=== PATIENT | female | born 1930 | race Caucasian/White ===

== ENCOUNTER 2017-09-11 20:51 | Emergency (ER) | payer OTHER ==
[~2017-09-11] VITALS: Ht 167.6 cm; Wt 55.8 kg
[~2017-09-11 20:51] MED LIST: ACETAMINOPHEN-1 EAC1 PO; ASPIR 8181 MG PO; ASPIRIN325 PO; CARBIDOPA-LEVO1 EAC9 PO; CARBIDOPA/LEVO1 TA1 PO; CARBIDOPA/LEVO1 TAB PO; CEFUROXIME500 MG PO; CIPRO500 MG PO; COLACE100 MG PO; DIFLUCAN150 MG PO; DIFLUCAN200 MG PO; HYDROCODONE-AP1 EAC6 PO; KLOR-CON 1010 MEQ PO; LISINOPRIL10 MG PO; LISINOPRIL5 MG PO; OXYBUTYNIN 5 MG5 M2; REFRESH TEARS15 ML OPHTHALMIC; SYSTANE 0.3-0.415 ML OPHTHALMIC; TOPROL XL25 MG PO; TOPROL XL50 MG PO; XARELTO10 MG PO
[2017-09-11] MEDS ORDERED: ARICEPT 5 MG TAB5 MG PO (20:57)
[2017-09-11] MEDS ORDERED: TOLTERODINE TART4 MG PO (20:58)
[2017-09-11 21:25] LABS: ABSOLUTE BASOPHILS 0.1 thou/uL (0.0-0.2); ABSOLUTE EOSINOPHILS 0.1 thou/uL (0.0-0.7); ABSOLUTE LYMPHOCYTES 1.7 thou/uL (0.8-5.3); ABSOLUTE MONOCYTES 0.7 thou/uL (0.0-1.2); ABSOLUTE NEUTROPHILS 4.7 thou/uL (1.6-8.1); BASOPHILS 1.6 %; HEMOGLOBIN 12.2 gm/dL (12.0-15.0); LYMPHOCYTES 23.4 %; MCH 28.9 pg (26.0-34.0); MCV 87.6 fL (80.0-100.0); MONOCYTES 9.4 %; MPV 8.2 fl. (7.2-11.1); NUCLEATED RBCS 0 /100WBC; PLATELET COUNT* 217 thou/uL (150-400); POLYS 63.6 %; RBC 4.22 mil/uL (4.20-5.00); RDW-CV 14.5 % (10.5-14.5); WBC 7.4 thou/uL (4.0-11.0)
[2017-09-11 21:30] LABS: APTT 21.6 Seconds (25.0-31.3); INR 1.1; PROTIME 10.3 Seconds (9.20-11.50)
[2017-09-11 21:45] LABS: URINE BILIRUBIN NEGATIVE (Negative); URINE BLOOD NEGATIVE (Negative); URINE CLARITY CLEAR; URINE COLOR YELLOW; URINE GLUCOSE-RANDOM NEGATIVE (Negative); URINE KETONES 1+ (Negative); URINE LEUKOCYTES-REFLEX 2+ (Negative); URINE NITRITE-REFLEX POSITIVE (Negative); URINE PROTEIN NEGATIVE (Negative); URINE UROBILINOGEN 0.2 E.U./dl (0.2-1.0)
[2017-09-11 21:52] LABS: ALBUMIN 3.4 g/dL (3.4-5.0); ALKALINE PHOSPHATASE 81 U/L (46-116); ANION GAP 6 mmol/L (7-16); CHLORIDE 103 mmol/L (98-107); CK-MB MASS 1.3 ng/mL (<0.5-3.6); CO2 27 mmol/L (21-32); CREATININE 0.8 mg/dL (0.6-1.3); GLUCOSE 143 mg/dL (70-99); NT-PRO BRAIN NAT PEPTIDE 953 pg/mL (<300); POTASSIUM 4.3 mmol/L (3.5-5.1); SGOT 22 U/L (15-37); SGPT 8 U/L (30-65); SODIUM 136 mmol/L (136-145); TOTAL BILIRUBIN 0.6 mg/dL (<0.1-1.0); TROPONIN-I LEVEL <0.06 ng/mL (<0.06)
[2017-09-11 21:52] LABS: CRYSTALS None Seen /LPF (None Seen); HYALINE CASTS 4-10 Moderate /LPF (None Seen); MUCUS None Seen strn/LPF (None Seen); SQUAMOUS 4-10 Moderate /LPF (0-3)
[2017-09-11 21:54] LABS: URINE WBC-REFLEX >25 Many /HPF (0-5); WBC CLUMPS Few (None Seen)
[2017-09-11 21:55] LABS: BACTERIA-REFLEX >30 Many /HPF (None Seen); URINE RBC 0-2 Rare /HPF (0-2)
[2017-09-11 22:02] LABS: BUN 30 mg/dL (7-18)
[2017-09-11] MEDS ORDERED: CIPROFLOXACIN500 M1 PO (22:10)
[2017-09-11] MEDS ORDERED: DIFLUCAN150 MG PO (22:14)
[2017-09-11 22:30] VITALS: BP 147/81
--- NOTE | 2017-09-12 10:31 | EKG ---
[place] [address] ELECTROCARDIOGRAM REPORT Name: ELVIN LEEBA Sherley Room: [facility]#: [id number] Admission: 09/11/17 Attend Phys: Discharge: 09/11/17 Date of : 30 Report #: [id number] THIS REPORT FOR: //name// [facility] ED Test Date: 2017-09-11 Test Time: 21:09:43 Pat Name: GET LEE Department: Room: Gender: F Critical Care Nurse: JOSSIE : 1930 Requested By: Jeronimo Gonzalez Order Number: [id number] MD: Eduin Crabtree Measurements Intervals [place] Rate: 73 P: 49 MS: 177 QRS: -21 QRSD: 148 T: 69 QT: 461 QTc: 508 Interpretive Statements Sinus rhythm Probable left atrial enlargement Left bundle branch block Artifact in lead(s) I,II,aVR Compared to ECG 02/21/2017 23:22:21 Ventricular premature complex(es) no longer present Electronically Signed On 09-12-2017 10:31:41 STEM PROCESSING MACHINE OPERATOR by Eduin Crabtree [email or web address] <ELECTRONICALLY SIGNED> By: Eduin Crabtree MD, FACC 09/12/17 1031 08 08 Eduin Crabtree MD, [facility] /EPI
== END 2017-09-11 22:30 | disposition home or self-care (01) ==
LOC: M.ERS 20:51
PROVIDERS: Family Medicine
DX: N39.0 Urinary tract infection, site not specified (principal); I10 Essential (primary) hypertension; G20 Parkinson's disease; Z85.3 Personal history of malignant neoplasm of breast; Z90.710 Acquired absence of both cervix and uterus

== ENCOUNTER → 2018-01-23 | Outpatient (CLI) | payer OTHER ==
[~2018-01-23] MED LIST changes: +ARICEPT 5 MG TAB5 MG PO; +CIPROFLOXACIN500 M1 PO; +TOLTERODINE TART4 MG PO
== END ==
LOC: M.ULTRA 01-18 13:00
DX: I70.213 Atherosclerosis of native arteries of extremities with intermittent claudication, bilateral legs (principal)

== ENCOUNTER 2018-08-04 18:42 | Inpatient (IN) | payer OTHER ==
[~2018-08-04] VITALS: Ht 170.2 cm; Wt 53.1 kg
[2018-08-04 18:46] VITALS: BP 195/96
[2018-08-04] MEDS ORDERED: ARICEPT 5 MG TAB5 MG PO (18:54)
[2018-08-04 19:24] LABS: ABSOLUTE BASOPHILS 0.1 thou/uL (0.0-0.2); ABSOLUTE EOSINOPHILS 0.1 thou/uL (0.0-0.7); ABSOLUTE LYMPHOCYTES 2.2 thou/uL (0.8-5.3); ABSOLUTE MONOCYTES 0.6 thou/uL (0.0-1.2); ABSOLUTE NEUTROPHILS 3.3 thou/uL (1.6-8.1); BASOPHILS 0.9 %; EOSINOPHILS 2.1 %; HEMOGLOBIN 13.9 gm/dL (12.0-15.0); LYMPHOCYTES 34.7 %; MCH 29.7 pg (26.0-34.0); MCV 90.1 fL (80.0-100.0); MONOCYTES 9.2 %; MPV 7.8 fl. (7.2-11.1); NUCLEATED RBCS 0 /100WBC; PLATELET COUNT* 208 thou/uL (150-400); POLYS 53.1 %; RBC 4.66 mil/uL (4.20-5.00); RDW-CV 13.3 % (10.5-14.5); WBC 6.2 thou/uL (4.0-11.0)
[2018-08-04 19:33] LABS: APTT 24.2 Seconds (25.0-31.3); PROTIME 10.6 Seconds (9.20-11.50)
[2018-08-04 19:34] LABS: ANION GAP 13 mmol/L (7-16); BUN 23 mg/dL (7-18); CALCIUM 9.2 mg/dL (8.5-10.1); CHLORIDE 101 mmol/L (98-107); CO2 24 mmol/L (21-32); CREATININE 0.9 mg/dL (0.6-1.3); GLUCOSE 169 mg/dL (70-99); POTASSIUM 3.3 mmol/L (3.5-5.1); SODIUM 138 mmol/L (136-145)
[2018-08-04 19:44] LABS: ALBUMIN 3.6 g/dL (3.4-5.0); ALKALINE PHOSPHATASE 63 U/L (46-116); NT-PRO BRAIN NAT PEPTIDE 1141 pg/mL (<300); SGOT 17 U/L (15-37); SGPT 12 U/L (30-65); TOTAL PROTEIN 7.4 g/dL (6.4-8.2); TROPONIN-I LEVEL <0.06 ng/mL (<0.06)
--- NOTE | 2018-08-04 19:55 | NUR ---
PT RETURNED FROM CAT SCAN AT 1924.
[2018-08-04 19:57] LABS: URINE BILIRUBIN NEGATIVE (Negative); URINE BLOOD TRACE (Negative); URINE CLARITY SL CLOUDY; URINE COLOR YELLOW; URINE GLUCOSE-RANDOM NEGATIVE (Negative); URINE KETONES NEGATIVE (Negative); URINE NITRITE-REFLEX NEGATIVE (Negative); URINE PROTEIN NEGATIVE (Negative); URINE UROBILINOGEN 0.2 E.U./dl (0.2-1.0)
[2018-08-04 20:00] LABS: URINE LEUKOCYTES-REFLEX 3+ (Negative)
[2018-08-04 20:03] LABS: BACTERIA-REFLEX >30 Many /HPF (None Seen); SQUAMOUS 0-3 Few /LPF (0-3); URINE RBC None Seen /HPF (0-2); URINE WBC-REFLEX >25 Many /HPF (0-5)
--- NOTE | 2018-08-04 22:12 | NUR ---
REPORT GIVEN TO AVEL SALMON. PT EN ROUTE TO ROOM 211.
[2018-08-04 22:14] VITALS: BP 151/65
[2018-08-05 00:15] VITALS: BP 146/70
[2018-08-05 04:00] VITALS: BP 149/68
--- NOTE | 2018-08-05 06:24 | NUR ---
pt arrived 08/04/19 at 2230, admitted to room 211, pt is transferred with assist x3 to hospital bed from cart, pt son and daughter in law are present, pt is alert and orientedx4 and pleasant, pt denies pain, jovel cath intact draining straw colored urine, pt introduced to surroundings, assessment and admission complete, skin assessment complete with no abnormal findings noted, pt has questions about receiving her home meds, order have been obtained to resume home meds however pts DPOA needs to be contacted to clarify doses, pt voices no other complaints, concerns, rests queitly in bed with fall precatioutions in place
[2018-08-05] MEDS ORDERED: SINEMET 25-2501 EAC1 PO (07:46)
--- NOTE | 2018-08-05 07:46 | NUR ---
THIS NURSE WAS ABLE TO REACH RELL REYNA DPOA VIA TELEPHONE THIS MORNING TO CLARIFY PTS HOME MEDS, ALL HOME MEDS HAVE BEEN ORDERED FOR THE PT TO RECEIVE HERE IN THE HOSPITAL
[2018-08-05 08:00] VITALS: BP 164/83
--- NOTE | 2018-08-05 09:08 | NUR ---
PT RESTING IN BED, APPEARS ALERT O X 4, DENIES CHEST PAIN, SOB, PAIN OR DISCOMFORT, STOLL TO DD, PAIV PATENT, IVF, DAUGHTER AT BEDSIDE, DR FITZGERALD HERE TO SEE
[2018-08-05 11:11] LABS: ABSOLUTE BASOPHILS 0.1 thou/uL (0.0-0.2); ABSOLUTE EOSINOPHILS 0.1 thou/uL (0.0-0.7); ABSOLUTE LYMPHOCYTES 1.5 thou/uL (0.8-5.3); ABSOLUTE MONOCYTES 0.6 thou/uL (0.0-1.2); ABSOLUTE NEUTROPHILS 3.4 thou/uL (1.6-8.1); BASOPHILS 1.2 %; EOSINOPHILS 2.5 %; HEMATOCRIT 37.4 % (37.0-47.0); HEMOGLOBIN 12.2 gm/dL (12.0-15.0); LYMPHOCYTES 26.3 %; MCH 29.5 pg (26.0-34.0); MCHC 32.6 g/dL (28.0-37.0); MCV 90.6 fL (80.0-100.0); NUCLEATED RBCS 0 /100WBC; PLATELET COUNT* 176 thou/uL (150-400); RBC 4.13 mil/uL (4.20-5.00); RDW-CV 13.7 % (10.5-14.5); WBC 5.6 thou/uL (4.0-11.0)
[2018-08-05 11:19] LABS: CALCIUM 8.2 mg/dL (8.5-10.1); CREATININE 0.7 mg/dL (0.6-1.3); MAGNESIUM 1.8 mg/dL (1.8-2.4); POTASSIUM 3.6 mmol/L (3.5-5.1)
--- NOTE | 2018-08-05 12:13 | EKG ---
[place] [address] ELECTROCARDIOGRAM REPORT Name: JESUSGET T Room: [address] ADM IN [facility].#: [id number] Admission: 08/04/18 Attend Phys: Jackson Alves Discharge: Date of : 30 Report #: [id number] THIS REPORT FOR: //name// [facility] ED Test Date: 2018-08-04 Test Time: 19:09:41 Pat Name: GET LEE Department: Room: [facility] Gender: F Customer Experience Strategist: Sergio DAVIS : 1930 Requested By: Jeronimo Gonzalez Order Number: [id number] MD: Ammon Bartlett Measurements Intervals [place] Rate: 90 P: 0 UT: QRS: -9 QRSD: 115 T: 155 QT: 320 QTc: 392 Interpretive Statements Sinus tachycardia LVH with IVCD and secondary repol abnrm Repol abnrm, severe global ischemia (LM/MVD) Compared to ECG 09/11/2017 21:09:43 Intraventricular conduction delay now present Left ventricular hypertrophy now present Early repolarization now present Possible ischemia now present Sinus rhythm no longer present Left bundle-branch block no longer present Electronically Signed On 08-05-2018 12:12:58 MARKETING EDITOR by Ammon Bartlett [email or web address] <ELECTRONICALLY SIGNED> By: Ammon Bartlett MD, [facility] 08/05/18 1212 08 08 Ammon Bartlett MD, [facility] /EPI
[2018-08-05 12:14] VITALS: BP 162/75
[2018-08-05 16:00] VITALS: BP 164/86
--- NOTE | 2018-08-05 17:51 | NUR ---
PT RESTING IN BED, PROGRESSING TOWARDS GOALS, REMAINS O X 3-4 , FORGETFUL, DENIES CHEST PAIN, SOB. TX FOR UTI WITH ROCEPHIN IV, HX OF YEAST INFECTION AFTER TAKING ROCEPHIN IN PAST, WAS GIVEN FLUCONAZOLE X 1,. IVF D/C, WORKE WITH PHYSICL THERAPY, EAS ABLE TO AMB APPROX 150 FEET WITH HAND-HELD ASSIST OF ONE , USES WALKER
[2018-08-05 20:00] VITALS: BP 162/72
[2018-08-05 23:07] LABS: GLYCOHEMOGLOBIN (HGB A1C) 5.1 % (4.8-5.6)
[2018-08-06] VITALS: BP 149/72
[2018-08-06 04:30] VITALS: BP 139/71
--- NOTE | 2018-08-06 05:17 | NUR ---
pt has no change in condition this shift, pt is alert and oriented x4 and pleasant, continues pacing sinus rhythm on cardiac monitoring, jovel catheter remains intact to dependent drainage, jovel cath care provided, pt resting quietly in bed at this time, call light within reach, no s/s acute distress noted
[2018-08-06 07:54] VITALS: BP 136/74
--- NOTE | 2018-08-06 08:10 | NUR ---
RECEIVED REPORT. ASSUMED CARE OF PT AT 0730. VSS. CARDIAC MONTOIRING IN PLACE SR. AM ASSESSMENT AND VITALS COMPLETED CHARTED. PT IS ALERT AND ORIENTED. PT ON RA. IV SALINE LOCKED. STOLL REMOVED THIS AM. PT SITTING UP IN BED EATING BREAKFAST. PT DENIES ANY PAIN OR DISCOMFORT THIS AM. PT INFORMED OF PLAN OF CARE. PT COMMUNICATES UNDERSTANDING. CALL LIGHT IS WITHIN REACH. WILL CONTINUE TO MONITOR FOR DURATION OF SHIFT.
[2018-08-06] MEDS ORDERED: CEFUROXIME500 MG PO (10:16)
[2018-08-06 10:44] VITALS: BP 136/74
--- NOTE | 2018-08-06 11:22 | NUR ---
DISCHARGE ORDERS RECEIVED AND PREPARED. IV AND CARDIAC MONITORING DISCONTINUED. PT AND FAMILY EDUCATED ON DISCHARGE INSTRCTUIONS. PT AND FAMILY COMMUNICATE UNDERSTANDING. ALL QUESTIONS AND CONCNERS ANSWERED AT THIS TIME. PT GIVEN COPY OF DISCHARGE PAPERWORK AND NEW SCRIPT. PT'S PERSONAL BELONGINGS GATHERED AND SENT HOME WITH PT. PT ESCORTED OFF UNIT WITH NURSING STAFF. PT LEFT IN PRIVATE VEHICLE.
--- NOTE | 2018-08-07 09:15 | NUR ---
PT. DISCHARGED TO HOME PRIOR TO O.T. EVAL. PLEASE ORDER FURTHER O.T. SERVICES IF NEEDED.
== END 2018-08-06 11:29 | disposition home or self-care (01) | DRG 77 ==
LOC: M.ERS 18:42 → M.TBA-ER 20:57 → M.2W 21:21
PROVIDERS: Family Medicine; Internal Medicine; ADMIT Internal Medicine
DX: I67.4 Hypertensive encephalopathy (principal); R65.11 Systemic inflammatory response syndrome (SIRS) of non-infectious origin with acute organ dysfunction; N39.0 Urinary tract infection, site not specified; E87.2 Acidosis; G20 Parkinson's disease; F02.80 Dementia in other diseases classified elsewhere, unspecified severity, without behavioral disturbance, psychotic disturbance, mood disturbance, and anxiety; E87.6 Hypokalemia; R73.9 Hyperglycemia, unspecified; I10 Essential (primary) hypertension; E86.0 Dehydration; Z90.710 Acquired absence of both cervix and uterus; Z79.899 Other long term (current) drug therapy